=== PATIENT | female | born 1950 | race African-American/Black ===

== ENCOUNTER 2023-10-10 18:58 | Inpatient (IN) | payer SELFPAY ==
[2023-10-10] VITALS (9 sets, daily range): BP systolic 78–96; BP diastolic 50–66; PULSE 63–72; RESP 13–17; TEMP 96.4; O2SAT 96–100
[~2023-10-10] VITALS: Ht 165.1 cm; Wt 96.6 kg
[2023-10-10] MEDS ORDERED: PIOGLITAZONE HC45 MG (20:24)
[2023-10-10] MEDS ORDERED: METFORMIN HCL500 MG (20:24)
[2023-10-10] MEDS ORDERED: LOSARTAN-HCTZ1 EAC1 (20:24)
[2023-10-10] MEDS ORDERED: ATORVASTATIN CA40 MG (20:24)
[2023-10-10] MEDS ORDERED: AMLODIPINE BESY10 MG (20:24)
[2023-10-10] MEDS ORDERED: MAGNESIUM SULF 1GRAM/DEXTROSE 100 ML IV PRN (20:30)
[2023-10-10] MEDS ORDERED: INSULIN REGULAR, HUMAN 3ML VL 100 UNIT in SODIUM CHLORIDE 0.9% 100 ML IV SCH (20:30)
[2023-10-10] MEDS: MUPIROCIN 2% OINT 22 GM TUBE TOP SCH (20:40)
[2023-10-10] MEDS: ATORVASTATIN 40 MG TAB PO SCH (21:00)
[2023-10-10 21:02] LABS: ANION GAP 29.9 mmol/L (8-16); CALCIUM 8.3 mg/dL (8.4-10.2); CREATININE, SERUM 2.5 mg/dL (0.57-1.11); MAGNESIUM 2.2 MG/DL (1.3-2.1)
[2023-10-10 21:04] LABS: POTASSIUM 2.9 mmol/L (3.5-5.1)
[2023-10-10] MEDS: SODIUM CHLORIDE 0.9% 1000ML 1,000 ML IV SCH (21:40)
[2023-10-10] MEDS: POTASSIUM CHLORIDE 20MEQ/100ML 200 ML IV PRN (21:41)
[2023-10-10] MEDS: DEXTROSE 5%/0.45% SOD CHL 1,000 ML IV SCH (22:14)
[2023-10-11] VITALS (26 sets, daily range): BP systolic 88–148; BP diastolic 58–84; PULSE 58–99; RESP 11–20; TEMP 97.1–97.9; O2SAT 93–100
[2023-10-11 00:52] LABS: ANION GAP 24.3 mmol/L (8-16); CALCIUM 9.5 mg/dL (8.4-10.2); CREATININE, SERUM 2.64 mg/dL (0.57-1.11)
[2023-10-11 01:04] LABS: POTASSIUM 4.3 mmol/L (3.5-5.1)
[2023-10-11 02:44] LABS: MAGNESIUM 2.4 MG/DL (1.3-2.1)
[2023-10-11 06:56] LABS: ANION GAP 9.3 mmol/L (8-16); CREATININE, SERUM 2.34 mg/dL (0.57-1.11); POTASSIUM 4.3 mmol/L (3.5-5.1)
[2023-10-11 07:19] LABS: MAGNESIUM 2.4 MG/DL (1.3-2.1)
[2023-10-11] MEDS ORDERED: SODIUM CHLORIDE 0.9% 1000ML 1,000 ML IV SCH (08:30)
[2023-10-11] MEDS ORDERED: DEXTROSE 50% SYRINGE 50 ML IV PRN (08:30)
[2023-10-11] MEDS: ONDANSETRON HCL INJ 2MG/ML 2ML 2 MG/ML VIAL IV PRN (08:59)
[2023-10-11] MEDS: INSULIN GLARGINE 100 UNITS/ML VIAL SQ SCH (09:12)
[2023-10-11] MEDS ORDERED: SODIUM CHLORIDE 0.9% 1000ML 1,000 ML ONE (09:21)
[2023-10-11] MEDS: SODIUM CHLORIDE 0.9% 1000ML 1,000 ML IV SCH (10:46)
[2023-10-11] MEDS: INSULIN REGULAR, HUMAN 100 UNIT/1 ML SQ SCH (12:00)
[2023-10-12] VITALS (16 sets, daily range): BP systolic 90–145; BP diastolic 56–78; PULSE 63–82; RESP 12–30; TEMP 98.2; O2SAT 98–100
[2023-10-12 07:50] LABS: ANION GAP 16.6 mmol/L (8-16); CALCIUM 9.7 mg/dL (8.4-10.2); CREATININE, SERUM 1.35 mg/dL (0.57-1.11); POTASSIUM 3.6 mmol/L (3.5-5.1)
== END 2023-10-12 18:39 | disposition home or self-care (01) | DRG 637 ==
LOC: ICU 19:53
PROVIDERS: ADMIT Internal Medicine; ATTEND Internal Medicine
PROC: 02HV33Z Insertion of Infusion Device into Superior Vena Cava, Percutaneous Approach (ICD-10-PCS; principal; 2023-10-11)
DX: E11.10 Type 2 diabetes mellitus with ketoacidosis without coma (principal); G93.41 Metabolic encephalopathy; N17.9 Acute kidney failure, unspecified; D69.6 Thrombocytopenia, unspecified; E78.5 Hyperlipidemia, unspecified; I10 Essential (primary) hypertension; Z79.84 Long term (current) use of oral hypoglycemic drugs
CPT/HCPCS: 36415; 36569; 71045; 80048; 82948; 83735; 94799; J1815; J2405; J3480; J7030; J7050